=== PATIENT | male | born 1985 | race Caucasian/White ===

== ENCOUNTER 2020-07-03 16:19 | Outpatient (REF) | payer MEDICAID, OTHER, SELFPAY | END 2020-07-03 16:20 | disposition home or self-care (01) | LOC: HO.LAB 16:19 | PROVIDERS: Visit Provider Internal Medicine | DX: Z20.828 Contact with and (suspected) exposure to other viral communicable diseases (principal) | CPT/HCPCS: 87635 ==

== ENCOUNTER 2020-09-27 10:27 | Outpatient (REF) | payer MEDICAID, OTHER, SELFPAY | END 2020-09-27 10:28 | disposition home or self-care (01) | LOC: HO.LAB 10:27 | PROVIDERS: Visit Provider Internal Medicine | DX: Z20.828 Contact with and (suspected) exposure to other viral communicable diseases (principal) | CPT/HCPCS: 36415; C9803; U0003 ==

== ENCOUNTER 2020-10-05 13:18 | Outpatient (REF) | payer MEDICAID, OTHER, SELFPAY | END 2020-10-05 13:19 | disposition home or self-care (01) | LOC: HO.LAB 13:18 | PROVIDERS: Visit Provider Internal Medicine | DX: Z20.822 Contact with and (suspected) exposure to COVID-19 (principal) | CPT/HCPCS: 36415; C9803; U0003 ==

== ENCOUNTER 2022-03-10 09:07 | Emergency (ER) | payer MEDICAID, OTHER, SELFPAY ==
[2022-03-10 09:13] VITALS: BP 135/85; PULSE 75; RESP 18; TEMP 36.3; O2SAT 96; BMI 27.3
--- NOTE | 2022-03-10 09:26 | ED.GENADULT ---
HPI - General Adult General Chief complaint: General Medical Stated complaint: fever chills Time Seen by Provider: 03/10/22 09:26 Source: patient and system analyst Mode of arrival: ambulatory Limitations: language barrier History of Present Illness HPI narrative: Patient is a 36 year old male presenting to the emergency department today after feeling unwell last night. Patient states that last night he had a brief moment of feeling sick with a fever and chills. Patient states that it resolved and today he hasn't felt any of those things. Patient denies any current dizziness, lightheadedness, abdominal pain, nausea, vomiting, fever, chills, blurry vision, double vision, loss of vision, chest pain, difficulty breathing, shortness of breath, back pain, night sweats, pain with urination, increased urinary frequency, increased urinary urgency, blood in his urine or stool, syncope or a near syncopal episode, recent trauma or falls, bowel incontinence, bladder incontinence, bowel retention, bladder retention, or any other complaints at this time. Onset (ago): day(s) (1) Severity: mild Severity scale (1-10): 1 Relieving factors: none Exacerbating factors: none Treatments prior to arrival: none Related Data Allergies Allergy/AdvReac Type Severity Reaction Status Date / Time No Known Allergies Allergy Verified 03/10/22 09:16 Review of Systems Constitutional: Constitutional: Reports no additional constitutional complaints, Denies chills, Denies fever(s) and Denies night sweats Eyes: Eyes: Reports no additional eye complaints, Denies blurry vision, Denies change in vision, Denies diplopia, Denies eye discharge, Denies loss of vision and Denies eye pain ENT: Denies dizziness Cardiovascular: Cardiovascular: Reports no additional cardiovascular complaints, Denies chest pain, Denies lightheadedness, Denies Loss of Consciousness and Denies dyspnea Respiratory: Respiratory: Reports no additional respiratory complaints and Denies dyspnea Gastrointestinal: Gastrointestinal: Reports no additional gastrointestinal complaints, Denies abdominal pain, Denies melena, Denies hematochezia, Denies change in bowel habits and Denies change in stool character Genitourinary: Genitourinary: Reports no additional male genitourinary complaints, Denies hematuria, Denies oliguria, Denies difficulty urinating, Denies dysuria, Denies urinary frequency, Denies urinary hesitancy, Denies urinary incontinence and Denies urinary urgency Musculoskeletal: Musculoskeletal: Reports no additional musculoskeletal complaints, Denies numbness and Denies tingling Neurologic: Denies dizziness, Denies loss of vision, Denies numbness and Denies tingling Psychiatric: Psychiatric: Reports no additional psychiatric complaints Endocrine: Endocrine: Reports no additional endocrine complaints Hematologic/Lymphatic: Hematologic/Lymphatic: Reports no additional hematologic/lymphatic complaints Allergic/Immunologic: Allergic/Immunologic: Reports no additional allergic/immunologic complaints [facility] Past Medical History Attestation statement: The following information was validated with the patient. Source: old records reviewed Social History Social History Advance Directives: No Advance Directives Information Provided: No Physical Exam ED Vital Signs: Vital Signs - 24 hr 03/10/22 09:13 Temperature 97.4 F Pulse Rate 75 Respiratory Rate 18 Blood Pressure 135/85 Pulse Oximetry 96 Oxygen Delivery Method Room Air BMI result Body Mass Index 27.3 Const General: cooperative, no acute distress, alert and awake Nutritional Appearance: well nourished Orientation/consciousness: patient oriented x3 Limitations: no limitations HENMT Head: Yes normal to inspection and Yes atraumatic Ears: hearing grossly normal bilaterally and external ears normal General nose exam: Normal external nose present, no nasal discharge noted and no epistaxis Face and sinus: Yes normal facial exam, No abrasion and No laceration Mouth: Normal oral and palatal mucosa present, no drooling and no muffled voice Eyes General: appearance normal, both eyes and all related structures Periorbital: periorbital findings normal Eyelids: Yes eyelids normal Conjunctivae: conjunctivae normal Pupils: Equal, round and reactive pupils present EOM: EOMs intact bilaterally Neck Neck: Yes normal visual inspection, Yes full ROM and Yes no lymphadenopathy Chest Chest palpation & inspection: normal inspection of the chest Resp Effort & Inspection: normal respiratory effort and able to speak in complete sentences Auscultation: clear to auscultation bilaterally Cardio Rate: regular rate Rhythm: regular rhythm GI Inspection: Yes normal to inspection Neuro General: patient oriented x3 and moves all extremities Cranial nerves: Yes Equal, round and reactive pupils present Cognition (Neuro): normal cognition Motor exam (neuro): 5/5 motor strength present throughout Sensory Exam: Normal double simultaneous stimulation for sensation Coordination: [id number] test normal Extrem General: Yes normal to inspection, Yes full ROM and Yes capillary refill normal Psych Appearance: grossly normal Mental Status: mental status grossly normal Affect: normal affect Attitude: cooperative Thought process: Normal thought process present Thought content: Normal thought content present Insight: Good insight present (Psych) Medical Decision Making MDM Narrative Medical decision making narrative: Patient is a 36 year old male presenting to the emergency department today after an episode of feeling unwell last night. Patient's physical exam was unremarkable. Patient's rapid influenza and COVID-19 tests were negative. I explained my physical exam findings as well as all test results to the patient. I answered all questions asked by the patient. I stressed the importance of the patient taking his medication as prescribed. I stressed the importance of the patient following up with his primary care provider. I stressed the importance of the patient returning to the emergency department immediately if his symptoms were to worsen or if he were to develop any dizziness, shortness of breath, difficulty breathing, chest pain, blurry vision, loss of vision, nausea, vomiting, abdominal pain, fever, chills, back pain, or any other complaints. Patient verbalized agreement and understanding with this treatment plan and discharge. Differential Diagnosis Differential Diagnosis: viral syndrome Medical Records Medical records reviewed: Yes I reviewed the patient's medical records. Lab Data Lab results reviewed: Yes I reviewed the patient's lab results. Labs: Lab Results 03/10/22 03/10/22 Range/Units 09:19 09:19 COVID-19 ([place]) Negative (Negative) COVID-19 Clin Com See Note Influenza Type A (JONATHAN) Negative (Negative) Influenza Type B (JONATHAN) Negative (Negative) Influenza A & B Note See Note Discharge Plan Discharge Clinical Impression: Viral illness Patient Disposition: Home, Self-Care Instructions: Viral Syndrome (ED) Additional Instructions: Follow up with your primary care provider. Return to the emergency department immediately if your symptoms worsen or if you develop any dizziness, shortness of breath, difficulty breathing, chest pain, blurry vision, loss of vision, nausea, vomiting, abdominal pain, fever, chills, back pain, or any other complaints. Referrals: [place] [Primary Care Provider] - Stand Alone Forms: Work/School Release Interventions: ED Discharge Assessment Last Done: 03/10/22 10:19 Discharge Date/Time: 03/10/22 10:19 Print Language: Ethiopian
--- NOTE | 2022-03-10 09:32 | PC.NURSE ---
pt states he felt warm lastnight and then felt very cold. he then took tylenol which helped him sleep. pt states he feels good today and no complaints. pt is vaccinated for covid.
[2022-03-10 09:59] LABS: COVID-19 Test Negative (Negative); IDNOW Serial# 16C4AD1C; Influenza A Negative (Negative); Influenza B2 Negative (Negative)
== END 2022-03-10 10:19 | disposition home or self-care (01) ==
PROVIDERS: Emergency Provider Emergency Medicine
DX: B34.9 Viral infection, unspecified (principal); R50.9 Fever, unspecified; Z20.822 Contact with and (suspected) exposure to COVID-19
CPT/HCPCS: 87502; 87635; 99283

== ENCOUNTER 2024-09-27 17:31 | Outpatient (REF) | payer MEDICAID, SELFPAY ==
[2024-09-30 09:54] LABS: C. trachomatis RNA TMA NOT DETECTED (NOT DETECTED); N. gonorrhoeae RNA TMA NOT DETECTED (NOT DETECTED)
== END 2024-09-27 17:32 | disposition home or self-care (01) ==
LOC: HO.HHCLNP 17:31
PROVIDERS: Visit Provider Family Medicine
DX: Z20.2 Contact with and (suspected) exposure to infections with a predominantly sexual mode of transmission (principal); Z11.3 Encounter for screening for infections with a predominantly sexual mode of transmission
CPT/HCPCS: 36415; 87491; 87591

== ENCOUNTER 2024-09-28 16:20 | Outpatient (REF) | payer MEDICAID, SELFPAY ==
[2024-09-29 07:59] LABS: HIV AB/AG Nonreactive (Nonreactive); HIV Num 1 0.06 S/CO (0.00-0.99); ~HepC Num1 0.07 S/CO (0.00-0.79); ~Hepatitis C Antibody Nonreactive (Nonreactive)
[2024-09-29 08:09] LABS: Syphilis Screen Nonreactive (Nonreactive)
== END 2024-09-28 16:21 | disposition home or self-care (01) ==
LOC: HO.HHCL 16:20
PROVIDERS: Visit Provider Family Medicine
DX: Z20.2 Contact with and (suspected) exposure to infections with a predominantly sexual mode of transmission (principal)
CPT/HCPCS: 36415; 86780; 86803; 87389

== ENCOUNTER 2025-02-15 16:33 | Outpatient (REF) | payer MEDICAID, OTHER, SELFPAY ==
--- OUTSIDE RECORDS SUMMARY | 2025-02-15 16:35 | XMS_ITS | Referral Summary ---
Author Organization [facility] Address [address] [place] [address] Care Team Providers Care Wood Type Finisher Name Role Phone Ilya Clark Primary Care Provider [phone] Allergies No known active allergies Medications No known medications Social History Tobacco Use Types Packs/Day Years Used Date Smoking Tobacco: Never Smokeless Tobacco: Never Tobacco Cessation:Counseling Given: Not Answered Sex and Gender Information Value Date Recorded Sex Assigned at Not on file Legal Sex Male 12:03 PM EST Gender Identity Not on file Sexual Orientation Not on file Last Filed Vital Signs Vital Sign Reading Time Taken Comments Blood Pressure 131/95 01/20/2024 1:01 PM EDT Pulse 62 01/20/2024 1:01 PM EDT Temperature - - Respiratory Rate - - Oxygen Saturation - - Inhaled Oxygen Concentration - - Weight - - Height - - Body Mass Index - - Plan of Treatment Not on file Insurance [employer] CARE Care Teams Wood Type Finisher Relationship Specialty Start Date End Date Ilya Clark [address] [place] [id number] PCP - General Emergency Medicine 10/08/23
[2025-02-15 17:31] LABS: MANUAL DIFF FLAG NO
[2025-02-15 18:03] LABS: Basophils Percent Auto 0.2 % (0-2); Eosinophils Absolute Auto 0.1 X10*3/uL (0.0-0.4); Eosinophils Percent Auto 2.1 % (0-4); Hematocrit 43.1 % (42.0-52.0); Hemoglobin 15.1 g/dl (14.0-18.0); Imm Gran Abs Auto 0.02 X10*3/uL (0.00-0.03); Imm Gran Pct Auto 0.3 % (0.0-0.4); Lymphocytes Absolute Auto 1.8 X10*3/uL (1.2-4.9); Lymphocytes Percent Auto 26.7 % (20-40); Mean Corpuscular Volume 85.7 fL (80.0-98.0); Mean Platelet Volume 10.6 fL (9.4-12.4); Monocytes Absolute Auto 0.5 X10*3/uL (0.1-1.2); Monocytes Percent Auto 7.3 % (2-11); Neutrophils Absolute Auto 4.2 x10*3/uL (2.0-8.3); Neutrophils Percent Auto 63.4 % (45-73); Platelet Count 311 X10*3/uL (160-400); Red Blood Count 5.03 X10*6/uL (4.60-5.80); Red Cell Distribution Width 12.9 % (11.0-16.0); White Blood Count 6.6 X10*3/uL (4.8-10.8)
[2025-02-15 18:21] LABS: Alanine Aminotransferase 60 U/L (0-40); Albumin Level 4.7 g/dL (3.5-5.0); Alkaline Phosphatase 83 U/L (39-117); Anion Gap 13 (12-20); Aspartate Amino Transferase 32 U/L (5-37); Bilirubin Total 0.3 mg/dL (0.0-1.0); Blood Urea Nitrogen 14 mg/dL (9-16); Calcium 9.2 mg/dL (8.4-10.2); Carbon Dioxide 27 mmol/L (22-29); Chloride 107 mmol/L (96-108); Estimated Glomerular Filt Rate > 60; Potassium 3.4 mmol/L (3.3-5.1); Sodium 144 mmol/L (135-145); Total Protein 7.8 g/dL (6.5-8.0)
[2025-02-15 18:24] LABS: TSH reflex Free T4 1.34 uIU/mL (0.32-4.0)
[2025-02-15 18:40] LABS: Folate 12.6 ng/mL (> or = 4.0); Vitamin B12 518 pg/mL (200-900)
[2025-02-15 19:19] LABS: Glucose Random 58 mg/dL (60-115)
[2025-02-16 05:17] LABS: CT PCR NOT DETECTED (Not Detect.); NG PCR NOT DETECTED (Not Detect.)
== END 2025-02-15 16:34 | disposition home or self-care (01) ==
LOC: HO.HHCL 16:33
PROVIDERS: Family Medicine; Visit Provider Family Medicine
DX: Z20.2 Contact with and (suspected) exposure to infections with a predominantly sexual mode of transmission (principal); R20.2 Paresthesia of skin
CPT/HCPCS: 36415; 80053; 82607; 82746; 84443; 85025; 87491; 87591

== ENCOUNTER 2025-09-05 14:57 | Outpatient (REF) | payer MEDICAID, OTHER, SELFPAY ==
--- OUTSIDE RECORDS SUMMARY | 2025-09-04 14:40 | XMS_ITS | Encounter Summary ---
Author Organization [employer] Address [address] [facility] [address] [place] [address] Care Team Providers Care Dairy Lab Technician Name Role Phone Myra Metzger [facility] Primary Care Provider [phone] Reason for Visit * Reason Comments Hand Injury Encounter Details Date Type Department Care Team ([facility] st Contact Info) Description 09/04/2025 2:40 PM EST Office Visit [facility] [address] [place] [id number] Bella Harman MD [address] [place] [address] Contusion of right middle finger with damage to nail, initial encounter (Primary Dx); Contusion of right little finger with damage to nail, initial encounter Social History Tobacco Use Types Packs/Day Years Used Date Smoking Tobacco: Never Smokeless Tobacco: Never Tobacco Cessation:Counseling Given: Not Answered Sex and Gender Information Value Date Recorded Sex Assigned at Male 07/21/2022 10:19 AM EDT Legal Sex Male 10:19 AM EDT Gender Identity Choose not to disclose 10:19 AM EDT Sexual Orientation Choose not to disclose 2021 10:19 AM EDT documented as of this encounter Last Filed Vital Signs Vital Sign Reading Time Taken Comments Blood Pressure 126/84 09/04/2025 2:26 PM EST Pulse 79 09/04/2025 2:26 PM EST Temperature 37.1 C (98.7 F) 09/04/2025 2:26 PM EST Respiratory Rate 18 09/04/2025 2:26 PM EST Oxygen Saturation 95% 09/04/2025 2:26 PM EST Inhaled Oxygen Concentration - - Weight 64.3 kg (141 lb 12.8 oz) 09/04/2025 2:26 PM EST Height 153.5 cm (5' 0.43 ) 09/04/2025 2:26 PM ES T Body Mass Index 27.3 09/04/2025 2:26 PM EST documented in this encounter Progress Notes * Bella Harman MD - 09/04/2025 2:40 PM EST SUBJECTIVE Howard Phillips is a 40 y.o. adult who presents for Hand Injury. 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 Eyes: Negative for photophobia, pain and redness. Respiratory: Negative for cough and shortness of breath. Cardiovascular: Negative for leg swelling. Musculoskeletal: Right middle finger and pinky pain Skin: Negative for pallor and rash. OBJECTIVE Vitals: 09/04/25 1426 BP: 126/84 BP Location: Left arm Patient Position: Sitting BP Cuff Size: Adult Pulse: 79 Resp: 18 Temp: 98.7 ??F (37.1 ??C) TempSrc: Temporal SpO2: 95% Weight: 141 lb 12.8 oz (64.3 kg) Height: 5' 0.43 (1.535 m) Physical Exam Constitutional: General: Howard is not in acute distress. Appearance: Normal appearance. Howard is not ill-appearing, toxic-appearing or diaphoretic. Pulmonary: Effort: Pulmonary effort is normal. Musculoskeletal: Right hand: Tenderness present. Comments: Mild tenderness to palpation of the proximal interphalangeal joint of the middle finger. No redness/swelling. Pt is able to flex and extend his fingers on the right. Neurological: Mental Status: Howard is alert. Assessment/Plan Assessment/Plan Diagnoses and all orders for this visit: Contusion of right middle finger with damage to nail, initial encounter - XR Hand 3+ Views Right; Future - Diclofenac Sodium 1 % gel; To apply to the affected area 3 times a day Contusion of right little finger with damage to nail, initial encounter - XR Hand 3+ Views Right; Future - Diclofenac Sodium 1 % gel; To apply to the affected area 3 times a day Pain and limited movement in right middle and right pinky fingers: - Pain and difficulty with flexion and extension in right middle and right pinky fingers, possibly due to trauma or overuse. Differential diagnosis includes fracture and arthritis. - Ordered X-ray of right middle and right pinky fingers to evaluate for fracture or arthritis. Prescribed topical anti-inflammatory cream to be applied four times daily for pain relief. Results of X-ray to be reviewed. This note was drafted using Ambient (AI) technology. The patient/patient's guardian has been informed and has consented to the use of this technology: Yes [1] Patient Active Problem List Diagnosis Clogged ear, left Possible exposure to STD [2] No Known Allergies [3] Current Outpatient Medications on File Prior to Visit Medication Sig Dispense Refill fluticasone (Flonase Allergy Relief) 50 MCG/ACT nasal spray Administer 1 spray into each nostril inthe morning. Shake gently. Before first use, prime pump. After use, clean tip and replace cap. 16 g1 ibuprofen 400 MG tablet Take 1 tablet (400 mg) by mouth every 6 (six) hours if needed for moderate pain or fever for up to 30 doses. 30 tablet 0 No current facility-administered medications on file prior to visit. documented in this encounter Plan of Treatment Upcoming Encounters Date Type Department Care Team (Late st Contact Info) Description 09/06/2025 2:30 PM EST Office Visit [facility] [address] [place] [address] 11/02/2025 3:20 PM EST Office Visit [facility] [address] [place] [address] [facility] [address] [place] [address] documented as of this encounter Procedures Procedure Name Priority Date/Time Associated Diagnosis Comments XR HAND 3+ VIEWS RIGHT Routine 09/05/2025 3:24 PM EST Contusion of right middle finger with damage to nail, initial encounter Contusion of right little finger with damage to nail, initial encounter documented in this encounter Results * XR Hand 3+ Views Right (09/05/2025 3:24 PM EST) Anatomical Region Laterality Modality Upper Extremities, Hand Right [facility] 09/05/2025 3:24 PM EST Narrative 09/05/2025 3:33 PM EST [facility] [address] [place] [address] XRay Report Signed Patient: Howard Read MR #: [id number] : 1985 Acct:[id number] Age/Sex: 40 / M ADM Date: 09/05/25 Loc: .HHCX Attending Dr: Bella Harman MD Ordering Physician: Bella Harman MD Date of Service: 09/05/25 Procedure(s): XR hand RT min 3V Accession Number(s): [id number] cc: Bella Harman MD Reason for Exam: PAIN EXAMINATION: XR HAND 3 OR MORE VIEWS RIGHT HISTORY: PAIN COMPARISON: There are no prior studies available for comparison. FINDINGS: Four views of the right hand are submitted. Osseous mineralization is normal. There is no fracture or dislocation. The joint spaces are preserved. The soft tissues are unremarkable. XR/XR hand RT min 3V IMPRESSION: Unremarkable examination of the right hand. Electronically signed by: Chuy Mcclure MD 09/05/2025 03:30 PM EST Dictated By: Chuy Mcclure MD Signed By: <Electronically signed by Chuy Mcclure MD in OV> 09/05/25 1530 DD/ 1524 TD/TT: 09/05/25 1513 School Photograph Editor: Procedure Note Donotuseinterpreter, Image - 09/05/2025 [facility] [address] [place] [address] XRay Report Signed Patient: Howard Read #: [id number] : 1985Acct:[id number] Age/Sex: 40 / MADM Date: 09/05/25 Loc: HO.HHCX Attending Dr: Bella Harman MD Ordering Physician: Bella Harman MD Date of Service: 09/05/25 Procedure(s): XR hand RT min 3V Accession Number(s): [id number] cc: Bella Harman MD Reason for Exam: PAIN EXAMINATION: XR HAND 3 OR MORE VIEWS RIGHT HISTORY: PAIN COMPARISON: There are no prior studies available for comparison. FINDINGS: Four views of the right hand are submitted. Osseous mineralization is normal. There is no fracture or dislocation. The joint spaces are preserved. The soft tissues are unremarkable. XR/XR hand RT min 3V IMPRESSION: Unremarkable examination of the right hand. Electronically signed by: Chuy Mcclure MD 09/05/2025 03:30 PM EST Dictated By: Chuy Mcclure MD Signed By: <Electronically signed by Chuy Mcclure MD in OV> 09/05/25 1530 DD/ 1524 TD/TT: 09/05/25 1513 School Photograph Editor: Bella Harman MD IMG XR PROCEDURES Edited Re sult - Final documented in this encounter Visit Diagnoses Diagnosis Contusion of right middle finger with damage to nail, initial encounter- Primary Contusion of right little finger with damage to nail, initial encounter documented in this encounter Care Teams Dairy Lab Technician Relationship Specialty Start Date End Date Malgorzata Neves FNP [address] [place] [id number] PCP - General Family Medicine 08/23/24 Myra Metzger Health Nav[facility] 07/28/24 documented as of this encounter
--- NOTE | ~2025-09-05 | XR_ITS ---
EXAMINATION: XR HAND 3 OR MORE VIEWS RIGHT HISTORY: PAIN COMPARISON: There are no prior studies available for comparison. FINDINGS: Four views of the right hand are submitted. Osseous mineralization is normal. There is no fracture or dislocation. The joint spaces are preserved. The soft tissues are unremarkable. XR/XR hand RT min 3V IMPRESSION: Unremarkable examination of the right hand. Electronically signed by: Chuy Mcclure MD 09/05/2025 03:30 PM [facility]
--- OUTSIDE RECORDS SUMMARY | 2025-09-05 19:20 | XMS_ITS | Encounter Summary ---
Author Organization [employer] [facility] Address [address] [facility] [address] [place] [address] Care Team Providers Care Welding Machine Operator Arc Name Role Phone Myra Metzger Unavailable [facility] Primary Care Provider [phone] Encounter Details Date Type Department Care Team (Latest Contact Info) Description 09/04/2025 Travel Social History Tobacco Use Types Packs/Day Years Used Date Smoking Tobacco: Never Smokeless Tobacco: Never Sex and Gender Information Value Date Recorded Sex Assigned at Male 07/21/2022 10:19 AM EDT Legal Sex Male 10:19 AM EDT Gender Identity Choose not to disclose 10:19 AM EDT Sexual Orientation Choose not to disclose 2021 10:19 AM EDT documented as of this encounter Plan of Treatment Upcoming Encounters Date Type Department Care Team ( Contact Info) Description 09/06/2025 2:30 PM EST Office Visit [facility] [address] [place] [address] 11/02/2025 3:20 PM EST Office Visit [facility]iv[facility] [address] [place] [address] [facility] [address] [place] [address] documented as of this encounter Visit Diagnoses Not on filedocumented in this encounter Care Teams Welding Machine Operator Arc Relationship Specialty Start Date End Date [place], [place] [facility] [address] [place], [place] PCP - General Family Medicine 08/23/24 Myra Metzger Health Navigator [facility] 07/28/24 documented as of this encounter
--- OUTSIDE RECORDS SUMMARY | 2025-09-05 19:20 | XMS_ITS | Encounter Summary ---
Author Organization [employer] [facility] Address [address] [facility] [address] [place] [address] Care Team Providers Care Consumer Studies Professor Name Role Phone Myra Metzger [facility] Primary Care Provider [phone] Encounter Details Date Type Department Care Team (Late st Contact Info) Description 09/28/2024 Orders Only [facility] [address] [place], [place] [phone] Milly Cook MD [address] [place] [address] Routine screening for STI (sexually transmitted infection) (Primary Dx) Social History Tobacco Use Types Packs/Day Years [...] Description 09/06/2025 2:30 PM EST Office Visit [facility] [address] [place], [place] [phone] 11/02/2025 3:20 PM EST Office Visit Shivani [facility] [address] [place] [address] [place], [place], [facility] [address] [place], [place] [phone] Scheduled Orders Name Type Priority Associated Diagnoses Orde r Schedule Chlamydia/N. Gonorrhoeae RNA, TMA, Urogenitial Microbiology Routine Routine screening for STI (sexually transmitted infection) Expected: 09/28/2024 (Approximate), Expires: 09/28/2025 documented as of this encounter Visit Diagnoses Diagnosis Routine screening for STI (sexually transmitted infection)- Primary Screening examination for venereal disease documented in this encounter Care Teams Consumer Studies Professor Relationship Specialty Start Date End [facility] [address] [place] [address] PCP - General Family Medicine 08/23/24 Myra Metzger Health Navigator [facility] 07/28/24 documented as of this encounter
--- OUTSIDE RECORDS SUMMARY | 2025-09-05 19:20 | XMS_ITS | Clinical Summary ---
Author Organization [facility] Address [address] [place] [id number] Care Team Providers Care Forest Engineer Name Role Phone Ilya Clark Primary Care Provider [phone] Allergies No known active allergies Medications No [...] Mass Index - - Plan of Treatment Health Maintenance Due Date Last Done Comments HIV Screening 1985 Hepatitis C Screening 1985 Varicella Vaccines (1 of 2 - 13+ 2-dose series) 1997 Hepatitis B Vaccines (1 of 3 - 19+ 3-dose series) 2003 DTaP,Tdap,and Td Vaccines (2 - Td or Tdap) 05/05/2023 05/05/2013 Alcohol/Substance Use Screening 09/21/2024 Depression Screening and Follow-Up 09/21/2024 Social Drivers of Health Annual Screening 09/21/2024 Influenza Vaccine (#1) 2025 6, 07/10/2012 COVID-19 Vaccine ( - 2024-2 6 season) 2025 Pneumococcal Vaccine: Pediatric (0-5 Years) and At-Risk Patients (6-50 Years) Aged Out 07/10/2012 No longer eligible based on patient's age to complete this topic Insurance [facility] HSNO/FREE CARE Care Teams Forest Engineer Relationship Specialty Start Date End Date Ilya Clark: [phone] [address] [place] [id number] PCP - General Emergency Medicine 10/08/23
--- OUTSIDE RECORDS SUMMARY | 2025-09-05 19:20 | XMS_ITS | Clinical Summary ---
Author Organization 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 Not on tom e 04/05/2024 Are you concerned about learning? Not on file 04/05/2024 No 04/05/2024 No 04/05/2024 Digital Access Answer Date Recorded No 04/05/2024 No 04/05/2024 Reliable internet access at home? Not on file 04/05/2024 Device with a working camera? Not on file Intimate Partner Violence Answer Date R ecorded Are you denied basic needs s uch as food, clothing, or medical care? No 04/04/2024 In the past 12 months have y ou been in a relationship with a person who hurts, threatens, or tries to control you? No 04/04/2024 Are you denied basic needs s uch as food, clothing, or medical care? No 04/04/2024 In the past 12 months have y ou been in a relationship with a person who hurts, threatens, or tries to control you? No 04/04/2024 Sex and Gender Information Value Date Recorded Sex Assigned at Male 04/04/2024 4:19 PM EDT Legal Sex Male 4:01 PM EDT Gender Identity Male 04/04/2024 4:19 PM EDT Sexual Orientation Straight 04/04/2024 4: 19 PM EDT Last Filed Vital Signs Vital Sign Reading Time Taken Comments Blood Pressure 120/82 04/05/2024 12:13 AM EDT Pulse 76 04/05/2024 12:13 AM EDT Temperature 36.5 C (97.7 F) 04/05/2024 12:13 AM EDT Respiratory Rate 18 04/05/2024 12:1 3 AM EDT Oxygen Saturation 98% 04/05/2024 12: 13 AM EDT Inhaled Oxygen Concentration - - Weight 63.5 kg (139 lb 15.9 oz) 024 12:13 AM EDT Height 152.4 cm (5') 04/05/2024 12:13 AM EDT Body Mass Index 27.34 04/05/2024 12:13 AM EDT Plan of Treatment Health Maintenance Due Date Last Done Comments Adult Td,Tdap Booster 1984 LIPID PANEL 1984 DEPRESSION SCREENING 1996 SMOKING Hx and SMOKELESS TOB ACCO SCREENING 1997 HEPATITIS C SCREENING 2002 HIV ONE-TIME SCREENING (18-6 5 YEARS) 2002 INFLUENZA VACCINE (#1) 2025 COVID-19 VACCINE (1 - 2024-2 6 season) 2025 SCREENING FOR DIABETES 04/04/2027 04/04/2024 HEPATITIS A VACCINES Aged Out No long er eligible based on patient's age to complete this topic HIB VACCINES Aged Out No longer eligi ble based on patient's age to complete this topic MENINGOCOCCAL VACCINES (ACWY) Aged Out No longer eligible based on patient's age to complete this topic MENINGOCOCCAL VACCINES (B) Aged Out N o longer eligible based on patient's age to complete this topic PNEUMOCOCCAL VACCINES (0-49 years) Aged Out No longer eligible based on patient's age to complete this topic Medical Devices Not on file Insurance [email or web address] NET FULL [address] [place] [address] [employer] NET FULL [address] [place] [address] [employer] S[employer] NET FULL [address] [place] [address] [employer] NET FULL [address] [place] [address] [employer] NET FULL [address] [place] [address] [facility] S[facility] NET FULL Care Teams Pickle Water Pump Operator Relationship Specialty Start Date End Date Pcp, Unknown PCP - General 04/04/24 Additional Source Comments The information contained in this document represents components of the legal health record. It is not the complete legal health record.[facility]
--- OUTSIDE RECORDS SUMMARY | 2025-09-05 19:20 | XMS_ITS | Clinical Summary ---
Author Organization [employer] Address [address] [place] [address] Care Team Providers Care Line Construction Superintendent Name Role Phone Myra Metzger [facility] Primary Care Provider [phone] Allergies No known active allergies Medications ibuprofen 400 MG tablet Take 1 tablet (400 mg) by mouth every 6 (six) hours if needed for moderate pain or fever for up to 30 doses. 30 tablet 4 Active fluticasone (Flonase Allergy Relief) 50 MCG/ACT nasal spray Administer 1 spray into each nostril in the morning. Shake gently. Before first use, prime pump. After use, clean tip and replace cap. 16 g 1 4 Active Diclofenac Sodium 1 % gelIndications: Contusion of right middle finger with damage to nail, initial encounter,Contu yasmani of right little finger with damage to nail, initial encounter To apply to the affected area 3 times a day 100 g 09/05/2025 3:30 PM EST 5 Active acetaminophen (Tylenol) 500 MG tablet Take 1 tablet (500 mg) by mouth every 6 (six) hours if needed for mild pain for up to 10 days. 30 tablet 08/04/2025 12:15 PM EST 5 08/14/20 25 Active Problems Problem Noted Date Diagnosed Date Possible exposure to STD 09/27/2024 Assessment & Plan (09/27/2024 5:33 PM EST): Pt is a poor historian. Reports he is suspecting he might have an STD. His partner is getting treated for unknown STD versus vaginal infection. -ordered Jose Alberto/Chla, HIV and Syphilis. -discussed not having sex till after partner's treatment is finished. -declined PreP. -ER precautions discussed. -Seek medical attention for worsening symptoms. Clogged ear, left 09/09/2024 Assessment & Plan (09/10/2024 2:41 PM EST): Irrigated without complication Encounters Date Type Department Care Team Description 09/04/2025 2:40 PM EST Office Visit [facility] [address] [place] [address] Bella Harman MD Contusion of right middle finger with damage to nail, initial encounter (Primary Dx); Contusion of right little finger with damage to nail, initial encounter 09/04/2025 Travel 08/25/2025 2:30 PM EST Office Visit [facility] [address] [place] [address] Min Mahan Encounter for dental examination (Primary Dx) 08/04/2025 8:00 AM EST Office Visit [facility] [address] [place] [address] Min Mahan Non-restorable tooth (Primary Dx) 07/26/2025 2:00 PM EST Office Visit [facility] [address] [place] [address] Min Mahan Non-restorable tooth (Primary Dx) 06/26/2025 Travel from Last 3 Months Social History Tobacco Use Types Packs/Day Years Used Date Smoking Tobacco: Never Smokeless Tobacco: Never Tobacco Cessation:Counseling Given: Not Answered Sex and Gender Information Value Date Recorded Sex Assigned at Male 07/21/2022 10:19 AM EDT Legal Sex Male 10:19 AM EDT Gender Identity Choose not to disclose 10:19 AM EDT Sexual Orientation Choose not to disclose 2021 10:19 AM EDT Last Filed Vital Signs Vital Sign [...] Mass Index 27.3 09/04/2025 2:26 PM EST Plan of Treatment Upcoming Encounters Date Type Department Care Team (Late st Contact Info) Description 09/06/2025 2:30 PM EST Office Visit [facility] [address] [place] [address] 11/02/2025 3:20 PM EST Office Visit [facility] [address] [place] [address] [place], [place], [facility] [address] [place] [address] Health Maintenance Due Date Last Done Comments Depression Screening 1984 Lipid Panel 1984 SDOH Screening 1984 Disability Screening 1984 Alcohol/Substance Use Screening 1996 Family Planning (PISQ) 1999 HPV Vaccines (1 - 3-dose series) 1999 Hepatitis B Vaccines (1 of 3 - 19+ 3-dose series) 2003 DTaP/Tdap/Td Vaccines (2 - T d or Tdap) 05/05/2023 05/05/2013 COVID-19 Vaccine (1 - 2024-2 6 season) 2025 Influenza Vaccine (#1) 2025 6, 07/10/2012 Dental Oral Exam 02/24/2026 08/25/2025, 05/22/2016 Dental Prophylaxis 02/24/2026 08/25/2025 Dental X-Ray: Bitewings 08/26/2026 08/25/20 25, 07/26/2025, 05/22/2016 Tobacco Screening 09/04/2026 09/04/2025 Dental X-Ray: Full Mouth 08/26/2028 025, 05/22/2016 Zoster Vaccines (1 of 2) 2034 RSV Patients and Patients Aged 60 years or older (1 - 1-dose 75+ series) 2059 Pneumococcal Vaccine: Pediatrics (0 to 5 Years) and At-Risk Patients (6 to 49) Years Aged Out 07/10/2012 No longer eligible b ased on patient's age to complete this topic HIV Screening Completed 09/28/2024 Hepatitis C Screening Completed 09/28/2024 HIB Vaccines Aged Out No longer eligi ble based on patient's age to complete this topic Hepatitis A Vaccines Aged Out No long er eligible based on patient's age to complete this topic IPV Vaccines Aged Out No longer eligi ble based on patient's age to complete this topic Meningococcal B Vaccine Aged Out No l onger eligible based on patient's age to complete this topic Meningococcal Vaccine Aged Out No jose elias ivan eligible based on patient's age to complete this topic RSV under 20 months Aged Out No longe r eligible based on patient's age to complete this topic Rotavirus Vaccines Aged Out No longer eligible based on patient's age to complete this topic Procedures Procedure Name Priority Date/Time Associated Diagnosis Comments XR HAND 3+ VIEWS RIGHT Routine 3:24 PM EST Contusion of right middle finger with damage to nail, initial encounter Contusion of right little finger with damage to nail, initial encounter CASE PRESENTATION, DETAILED AND EXTENSIVE TREATMENT PLANNING Routine 08/25/2025 2:30 PM EST ORAL HYGIENE INSTRUCTIONS Routine 08/25/2025 2:30 PM EST NUTRITIONAL COUNSELING FOR CONTROL OF DENTAL DISEASE Routine 08/25/2025 2:30 PM EST COMPREHENSIVE ORAL EVALUATION - NEW OR ESTABLISHED PATIENT Routine 08/25/2025 2:30 PM EST INTRAORAL - COMPLETE SERIES OF RADIOGRAPHIC IMAGES Routine 08/25/2025 2:30 PM EST PROPHYLAXIS - ADULT Routine 08/25/2025 2 :30 PM EST CASE PRESENTATION, DETAILED AND EXTENSIVE TREATMENT PLANNING Routine 08/04/2025 8:00 AM EST INTRAORAL - PERIAPICAL FIRST RADIOGRAPHIC IMAGE Routine 08/04/2025 8:00 AM EST 16 EXTRACTION, ERUPTED TOOTH OR EXPOSED ROOT (ELEVATION/FORCEPS REMOVAL) Routine 08/04/2025 8:00 AM EST INTRAORAL - PERIAPICAL FIRST RADIOGRAPHIC IMAGE Routine 07/26/2025 2:00 PM EST CASE PRESENTATION, DETAILED AND EXTENSIVE TREATMENT PLANNING Routine 07/26/2025 2:00 PM EST BITEWING - SINGLE RADIOGRAPHIC IMAGE Routine 07/26/2025 2:00 PM EST 16 LIMITED ORAL EVALUATION - PROBLEM FOCUSED Routine 07/26/2025 2:00 PM EST HEPATITIS C AB W/REFL TO HCV RNA, QN, PCR Routine 09/28/2024 4:23 PM EST Possible exposure to STD HIV 1/2 ANTIGEN/ANTIBODY, FOURTH GENERATION W/RFL Routine 09/28/2024 4:23 PM EST Possible exposure to STD from Last 3 Months or Most Recently Relevant to Health Maintenance Results * XR Hand 3+ Views Right (09/05/2025 3:24 PM EST) Anatomical Region Laterality Modality Upper Extremities, Hand Right Radiogra phic Imaging 09/05/2025 3:24 PM EST Narrative 09/05/2025 3:33 PM EST [facility] [address] [place] [address] XRay Report Signed Patient: Howard Read MR #: [id number] : 1985 Acct:[id number] Age/Sex: 40 / M ADM Date: 09/05/25 Loc: HO.HHCX Attending Dr: Bella Harman MD Ordering Physician: Bella Harman MD Date of Service: 09/05/25 Procedure(s): XR hand RT min 3V Accession Number(s): [id number] cc: Bella Harman MD Reason for Exam: [...] OV> 09/05/25 1530 DD/ 1524 TD/TT: 09/05/25 151 Coding Machine Operator: Procedure Note Cathleen, Image - 09/05/2025 [facility] [address] [place] [address] XRay Report Signed Patient: Howard ReadMR #: [id number] : 1985Acct:[id number] Age/Sex: 40 / MADM Date: 09/05/25 Loc: HO.HHCX Attending Dr: Bella Harman MD Ordering Physician: Bella Harman MD Date of Service: 09/05/25 Procedure(s): XR hand RT min 3V Accession Number(s): [id number] cc: Bella Harman MD Reason for Exam: [...] OV> 09/05/25 1530 DD/ 1524 TD/TT: 09/05/25 151 Coding Machine Operator: us Bella Harman MD IMG XR PROCEDURES Edited Re sult - Final * Hepatitis C Antibody with Reflex to HCV, RNA, Quantitative, Real-Time PCR (09/28/2024 4:23 PM EST) Hepatitis C Antibody Nonreactive Nonreactive [facility] Comment:Antibodies to HCV no t detected; does not exclude early acuteHCV infection. Blood Venous blood specimen / Unknown 09/28/2024 4:23 PM EST 09/28/2024 5:30 PM EST Milly Cook MD LAB BLOOD ORDERABLES Final Result Performing Organization Address [facility] Co de Phone Number [facility] [address] [place] [address] [phone] * HIV-1/2 Antigen and Antibodies, Fourth Generation, with Reflexes (09/28/2024 4:23 PM EST) [facility] HIV AB/AG Nonreactive Nonreactive [facility] Comment:HIV-1 p24 Ag and/or HIV-1/HIV-2 Ab not detected.A test result that is nonreactive does not exclude thepossibility of exposure to or infection with HIV-1 and/orHIV-2. Nonreactive results in this assay for individualswith prior exposure to HIV-1 and/or HIV-2 may be due toantigen and antibody levels that are below the limit ofdetection of this assay.The [employer] HIV Ag/Ab Combo assay result andsupplemental assay results should be interpreted inconjunction with the patient's clinical presentation,history and other laboratory results. If the results areinconsistent with clinical evidence, additional testing issuggested to confirm the result. Blood Venous blood specimen / Unknown 09/28/2024 4:23 PM EST 09/28/2024 5:30 PM EST Milly Cook MD LAB BLOOD ORDERABLES Final Result Performing Organization Address City/[facility]/ZIP Co de Phone Number [facility] [address] [place] [address] [phone] from Last 3 Months or Most Recently Relevant to Health Maintenance Insurance [place] AD[place]ENTAL - HSN FULL (MEDICAID) Care Teams Line Construction Superintendent Relationship Specialty Start Date End Date [facility] [address] [place] [phone] PCP - General Family Medicine 08/23/24 Myra Metzger Health Navigator [facility] 07/28/24
== END 2025-09-05 14:58 | disposition home or self-care (01) ==
LOC: HO.HHCX 14:57
PROVIDERS: PCP Internal Medicine; Visit Provider Internal Medicine
DX: S60.131A Contusion of right middle finger with damage to nail, initial encounter (principal); S60.151A Contusion of right little finger with damage to nail, initial encounter
CPT/HCPCS: 73130

== ENCOUNTER → 2025-09-05 15:03 | Outpatient (BNV) | payer MEDICAID, SELFPAY | PROVIDERS: PCP Internal Medicine; Visit Provider Radiology Diagnostic Radiology | DX: M79.641 Pain in right hand (principal) | CPT/HCPCS: 73130 ==